=== PATIENT | male | born 1945 | race Caucasian/White ===

== ENCOUNTER 2023-12-15 17:44 | Emergency (ER) | payer OTHER ==
[~2023-12-15] VITALS: Ht 177.8 cm; Wt 81.6 kg
[2023-12-15 17:48] VITALS: BP 154/89; PULSE 63; RESP 16; TEMP 98.3; O2SAT 97
[2023-12-15 18:01] VITALS: BP 167/73; PULSE 65; RESP 17; TEMP 98.1; O2SAT 0
== END 2023-12-15 20:44 | disposition home or self-care (01) ==
LOC: MED 17:44
DX: S16.1XXA Strain of muscle, fascia and tendon at neck level, initial encounter (principal); S00.31XA Abrasion of nose, initial encounter; S00.01XA Abrasion of scalp, initial encounter; I11.9 Hypertensive heart disease without heart failure; Z79.899 Other long term (current) drug therapy; V49.88XA Car occupant (driver) (passenger) injured in other specified transport accidents, initial encounter; Y93.89 Activity, other specified; Y92.89 Other specified places as the place of occurrence of the external cause; Y99.8 Other external cause status
CPT/HCPCS: 70450; 70486; 72125; 99284